=== PATIENT | female | born 1980 | race Caucasian/White ===

== ENCOUNTER 2021-07-20 11:36 | Emergency (ER) | payer SELFPAY ==
[~2021-07-20] VITALS: Ht 154.9 cm; Wt 60.0 kg
[2021-07-20 11:45] VITALS: BP 99/65
[2021-07-20] MEDS ORDERED: TETRACAINE 0.5% OPHTH DROPS 4ML LEFTEYE ONE (12:00)
[2021-07-20] MEDS ORDERED: FLUORESCEIN SODIUM 1MG/STRIP LEFTEYE ONE (12:00)
[2021-07-20] MEDS ORDERED: ACETAMINOPHEN 325MG TABLET PO ONE (12:00)
[2021-07-20] MEDS ORDERED: ERYT1OIN6 LEFTEYE (12:39)
[2021-07-20] MEDS ORDERED: ACET-2708 MT (12:39)
== END 2021-07-20 13:15 | disposition home or self-care (01) ==
LOC: ER 11:36
DX: S05.02XA Injury of conjunctiva and corneal abrasion without foreign body, left eye, initial encounter (principal); X58.XXXA Exposure to other specified factors, initial encounter; Y93.89 Activity, other specified; Y92.89 Other specified places as the place of occurrence of the external cause; Y99.8 Other external cause status
CPT/HCPCS: 81025; 99283